=== PATIENT | female | born 1995 | race Caucasian/White ===

== ENCOUNTER 2019-06-07 11:15 | Day surgery (SDC) | payer OTHER ==
[~2019-06-07] VITALS: Ht 177.8 cm; Wt 78.7 kg
[~2019-06-07 11:15] MED LIST: BENTYL 20MG20 MG/TAB PO; CIPRO 500MG TA500 MG PO; FLAGYL500 MG PO; ILOTYCIN5 MG/GM OP; PERCOCET 325 MG1 TA2 PO; ZOFRAN ODT8 MG PO
[2019-06-07 12:04] VITALS: BP 93/60; PULSE 74; TEMP 97.6
[2019-06-07] MEDS ORDERED: WELLBUTRIN XL300 M1 PO (12:34)
[2019-06-07] MEDS ORDERED: LEXAPRO20 MG PO (12:35)
[2019-06-07] MEDS ORDERED: INDERAL 20MG20 MG PO (12:36)
[2019-06-07] MEDS ORDERED: ESKALITH C450 MG/TAB PO (12:36)
--- NOTE | 2019-06-07 13:26 | NUR ---
Patient taken to the PACU per cart to have block placed.
--- NOTE | 2019-06-07 13:42 | NUR ---
Patient returns to room 1 per cart after having block placed. Call light in reach.
[2019-06-07 16:50] VITALS: BP 107/67; PULSE 67; TEMP 97.3
--- NOTE | 2019-06-07 16:50 | NUR ---
TO RM 1 PER CART FROM PACU. ALERT ORIENTED X3, TALKING TO STAFF AND FAMILY. RIGHT ANKLE ELEVATED AND ICED. DRESSINGS CLEAN DRY INTACT. ABLE TO WIGGLE TOES, DENIES ANY FEELING. DENIES PAIN OR DISCOMFORT. DENIES NAUSEA OR VOMITING.
[2019-06-07 17:05] VITALS: BP 102/58; PULSE 72
[2019-06-07] MEDS ORDERED: NORCO 325 MG-7.1 TAB PO (17:05)
--- NOTE | 2019-06-07 17:05 | NUR ---
RECEIVED APPLE JUICE AND MUFFIN.
[2019-06-07 17:09] VITALS: TEMP 97.3
[2019-06-07 17:20] VITALS: BP 103/58; PULSE 72
--- NOTE | 2019-06-07 17:20 | NUR ---
ATE A FEW BITES OF MUFFIN AND FEW SIPS OF JUICE.
[2019-06-07 17:30] VITALS: BP 99/56; PULSE 82
--- NOTE | 2019-06-07 17:30 | NUR ---
AMBULTED TO BATHROOM USING CRUTCHES. VOIDED AND TOLERATED WELL.
--- NOTE | 2019-06-07 17:45 | NUR ---
PATIENT RECEIVED DISCHARGE INSTRUCTIONS AND VERBALIZED UNDERSTANDING. DISCONTINUED IV AND INT. PATIENT GETTING DRESSED AND DENIES NEEDING HELP.
--- NOTE | 2019-06-07 18:02 | NUR ---
DISCHARGED PER WC BY NURSING STAFF WITH RIGHT LEG ELEVATED. ABLE TO TRANSFER TO CAR AND TOLERATED WELL. DISCHARGED IN CARE OF MOTHER AND GRANDPARENTS
== END 2019-06-07 18:04 | disposition home or self-care (01) ==
LOC: SDCO 11:15
DX: M76.71 Peroneal tendinitis, right leg (principal); M76.51 Patellar tendinitis, right knee; Z88.1 Allergy status to other antibiotic agents; F32.9 Major depressive disorder, single episode, unspecified
CPT/HCPCS: J0690; J1100; J1885; J2250; J2405; J2704; J2795; J3010; J7120

== ENCOUNTER 2019-07-09 10:25 | Emergency (ER) | payer OTHER ==
[~2019-07-09] VITALS: Ht 180.3 cm; Wt 77.3 kg
[~2019-07-09 10:25] MED LIST changes: +ESKALITH C450 MG/TAB PO; +INDERAL 20MG20 MG PO; +LEXAPRO20 MG PO; +NORCO 325 MG-7.1 TAB PO; +WELLBUTRIN XL300 M1 PO
[2019-07-09 10:42] VITALS: BP 95/52
[2019-07-09] MEDS ORDERED: TYLENOL 325MG325 MG (10:55)
[2019-07-09] MEDS ORDERED: TAMIFLU 75MG75 MG PO (11:40)
[2019-07-09 11:55] VITALS: PULSE 89; TEMP 100.5
== END 2019-07-09 12:00 | disposition home or self-care (01) ==
LOC: COL.ER 10:25
DX: J10.1 Influenza due to other identified influenza virus with other respiratory manifestations (principal); F32.9 Major depressive disorder, single episode, unspecified; F41.9 Anxiety disorder, unspecified; Z90.89 Acquired absence of other organs

== ENCOUNTER → 2019-09-20 | Outpatient (CLI) | payer OTHER ==
[~2019-09-20] MED LIST changes: +TAMIFLU 75MG75 MG PO; +TYLENOL 325MG325 MG
== END ==
LOC: COL.RAD 13:44
DX: M62.81 Muscle weakness (generalized) (principal); R51 Headache
CPT/HCPCS: A9585

== ENCOUNTER 2020-07-09 22:17 | Emergency (ER) | payer OTHER ==
[~2020-07-09] VITALS: Ht 177.8 cm; Wt 75.0 kg
[~2020-07-09 22:17] MED LIST changes: +WELLBUTRIN XL150 MG PO; -WELLBUTRIN XL300 M1 PO
[2020-07-09 23:00] VITALS: TEMP 98.3
[2020-07-09 23:39] LABS: BASO % 0.5 % (0.0-2.0); EOS # 0.1 (0.0-0.7); EOS % 1.7 % (0-4.0); GRAN # 4.7 (1.4-6.5); HEMOGLOBIN 12.2 g/dl (12.5-16.0); LYMPH # 1.9 (1.2-3.4); LYMPH % 25.1 % (20.0-51.0); MEAN CELL VOLUME 90 fl (80.0-100.0); MEAN CORPUSCULAR HEMOGLOBIN 31 pg (27.0-31.0); MEAN CORPUSCULAR HGB CONC 35 g/dl (33.0-37.0); MEAN PLATELET VOLUME 9.9 fl (7.4-10.4); MONO # 0.8 (0.1-0.6); MONO % 10.6 % (1.7-9.3); PLATELET COUNT 297 K/mm3 (130-400); RED BLOOD COUNT 3.95 M/mm3 (4.10-5.30); REDCELL DISTRIBUTION WIDTH-CV 11.7 % (11.5-14.5)
[2020-07-09 23:46] LABS: HEMATOCRIT 35.4 % (37.0-47.0)
[2020-07-09 23:48] LABS: ANION GAP 6 mmol/L (7-16); BLOOD UREA NITROGEN 13 mg/dL (7-17); CALCIUM 9.3 mg/dL (8.4-10.2); CARBON DIOXIDE 31 mmol/L (22-30); CHLORIDE 101 mmol/L (98-107); CREATININE, serum 0.86 (0.52-1.25); GLUCOSE 87 mg/dL (74-106); POTASSIUM 3.5 mmol/L (3.4-5.0); SODIUM 139 mmol/L (137-145)
[2020-07-10] LABS: TROPONIN-I < 0.012 ng/mL (0.000-0.035)
[2020-07-10 01:12] VITALS: BP 116/77; PULSE 72
[2020-07-10] MEDS ORDERED: ORTIKOS9 MG PO (02:49)
[2020-07-10] MEDS ORDERED: DESYREL 50MG50 MG PO (02:50)
[2020-07-10] MEDS ORDERED: ADDERALL20 MG PO (02:51)
[2020-07-10] MEDS ORDERED: MELATONIN5 M1 SL (02:52)
== END 2020-07-10 01:14 | disposition home or self-care (01) ==
LOC: COL.ER 22:17
PROVIDERS: Emergency Medicine
DX: R07.89 Other chest pain (principal); R06.02 Shortness of breath; F41.9 Anxiety disorder, unspecified; F32.9 Major depressive disorder, single episode, unspecified; Z88.2 Allergy status to sulfonamides
CPT/HCPCS: Q9967

== ENCOUNTER → 2020-10-31 | Outpatient (CLI) | payer OTHER ==
[~2020-10-31] MED LIST changes: +ADDERALL20 MG PO; +COLESTID 1GM1 G PO; +DESYREL 50MG50 MG PO; +HIZENTRA SQ; +LITHIUM CA150 MG/CAP PO; +MELATONIN5 M1 SL; +ORTIKOS9 MG PO; +PLAQUENIL 200M200 MG PO
== END ==
LOC: COL.RAD 09:43
DX: R59.0 Localized enlarged lymph nodes (principal)

== ENCOUNTER 2020-12-15 09:49 | Day surgery (SDC) | payer OTHER ==
[~2020-12-15] VITALS: Ht 177.8 cm; Wt 71.0 kg
[~2020-12-15 09:49] MED LIST changes: -COLESTID 1GM1 G PO; -HIZENTRA SQ; -LITHIUM CA150 MG/CAP PO; -PLAQUENIL 200M200 MG PO
[2020-12-15 11:07] VITALS: BP 98/65; PULSE 81; TEMP 97.3
[2020-12-15] MEDS ORDERED: LITHIUM CA150 MG/CAP PO (11:33)
[2020-12-15] MEDS ORDERED: PLAQUENIL 200M200 MG PO (11:43)
[2020-12-15] MEDS ORDERED: COLESTID 1GM1 G PO (11:47)
[2020-12-15] MEDS ORDERED: HIZENTRA SQ (11:54)
[2020-12-15 12:45] VITALS: BP 99/56; PULSE 63; TEMP 97.6
--- NOTE | 2020-12-15 12:45 | NUR ---
Pt to GI bay 8 via cart from ENDO. Pt awake and alert. Denies pain or nausea. Pt ambulates to recliner with stand by assistance. VSS. Muffin, juic and water given per pt request. No visitors here with pt at this time. Call light within reach.
[2020-12-15 13:00] VITALS: BP 100/67; PULSE 65
--- NOTE | 2020-12-15 13:00 | NUR ---
Pt tolerating PO food and fluids without difficulties. Will continue to monitor. Call light within reach.
[2020-12-15 13:15] VITALS: BP 100/60; PULSE 77
--- NOTE | 2020-12-15 13:15 | NUR ---
Pt continues to rest. Denies needs. Call light within reach.
[2020-12-15 13:30] VITALS: BP 97/55; PULSE 68
--- NOTE | 2020-12-15 13:30 | NUR ---
Pt denies needs. Awaiting postop consulation with . Call light within reach.
--- NOTE | 2020-12-15 13:40 | NUR ---
IV site discontinued with all parts intact by Lakshmi SCHUSTER. Pt up to dress. Call light within reach.
--- NOTE | 2020-12-15 13:45 | NUR ---
D/C IV WITH NO COMPLICATIONS
--- NOTE | 2020-12-15 13:58 | NUR ---
PHYSICIAN IN TO SEE PATIENT
--- NOTE | 2020-12-15 14:40 | NUR ---
Patient dressed, reviewed discharge instruction. Pt verablized understanding. Transfered via wheelchair to friends personal vehicle for ride home.
== END 2020-12-15 14:40 | disposition home or self-care (01) ==
LOC: SDCO 09:49
DX: K29.50 Unspecified chronic gastritis without bleeding (principal); K52.839 Microscopic colitis, unspecified; K64.0 First degree hemorrhoids; K64.4 Residual hemorrhoidal skin tags; F32.9 Major depressive disorder, single episode, unspecified; F41.9 Anxiety disorder, unspecified; D83.9 Common variable immunodeficiency, unspecified; F90.9 Attention-deficit hyperactivity disorder, unspecified type; Z79.899 Other long term (current) drug therapy
CPT/HCPCS: J7120

== ENCOUNTER → 2021-02-09 | Outpatient (CLI) | payer OTHER ==
[~2021-02-09] MED LIST changes: +COLESTID 1GM1 G PO; +HIZENTRA SQ; +LITHIUM CA150 MG/CAP PO; +PLAQUENIL 200M200 MG PO
== END ==
LOC: COL.RAD 11:45
DX: H53.131 Sudden visual loss, right eye (principal); R20.2 Paresthesia of skin
CPT/HCPCS: A9585

== ENCOUNTER 2021-02-13 22:09 | Emergency (ER) | payer OTHER ==
[~2021-02-13] VITALS: Ht 177.8 cm; Wt 72.7 kg
[2021-02-13 22:39] VITALS: TEMP 98.8
[2021-02-14 00:18] VITALS: BP 106/60; PULSE 82
== END 2021-02-14 00:30 | disposition home or self-care (01) ==
LOC: COL.ER 22:09
DX: S61.211A Laceration without foreign body of left index finger without damage to nail, initial encounter (principal); W26.0XXA Contact with knife, initial encounter

== ENCOUNTER → 2021-07-20 | Outpatient (CLI) | payer BC | LOC: COL.RAD 12:39 | DX: M16.11 Unilateral primary osteoarthritis, right hip (principal); M25.851 Other specified joint disorders, right hip; M24.251 Disorder of ligament, right hip | CPT/HCPCS: A9585; Q9967 ==

== ENCOUNTER → 2021-08-06 | Outpatient (CLI) | payer BC | LOC: COL.RAD 10:51 | DX: L94.9 Localized connective tissue disorder, unspecified (principal); R55 Syncope and collapse | CPT/HCPCS: Q9967 ==

== ENCOUNTER 2021-08-23 09:23 | Outpatient (CLI) | payer BC ==
[~2021-08-23] VITALS: Ht 177.8 cm; Wt 71.3 kg
[~2021-08-23 09:23] MED LIST changes: -WELLBUTRIN XL150 MG PO; +WELLBUTRIN XL300 M1 PO
[2021-08-23 10:01] VITALS: BP 114/70; PULSE 89; TEMP 98.7
[2021-08-23 12:00] VITALS: BP 100/72; PULSE 92; TEMP 98.4
[2021-08-23 12:37] VITALS: BP 113/66; PULSE 87
--- NOTE | 2021-08-23 12:37 | NUR ---
DC instructions reviewed with pt, she expresses understanding. INT DC'd with catheter intact. She is steady on feet. She is escorted out to elevator with friend.
== END 2021-08-23 12:40 | disposition home or self-care (01) ==
LOC: COL.CAR 09:23
DX: R42 Dizziness and giddiness (principal); R06.02 Shortness of breath; R00.2 Palpitations; R00.0 Tachycardia, unspecified; R19.5 Other fecal abnormalities; I95.1 Orthostatic hypotension; M35.9 Systemic involvement of connective tissue, unspecified; K52.832 Lymphocytic colitis; F90.9 Attention-deficit hyperactivity disorder, unspecified type; Z79.899 Other long term (current) drug therapy

== ENCOUNTER 2022-01-24 18:59 | Emergency (ER) | payer BC ==
[~2022-01-24] VITALS: Ht 177.8 cm; Wt 70.5 kg
[2022-01-24 19:06] VITALS: BP 119/77; TEMP 98.6
[2022-01-24] MEDS ORDERED: ZOFRAN ODT4 MG PO (19:43)
[2022-01-24 21:15] VITALS: PULSE 86
== END 2022-01-24 21:15 | disposition home or self-care (01) ==
LOC: COL.ER 18:59
DX: S06.0X0A Concussion without loss of consciousness, initial encounter (principal); W20.8XXA Other cause of strike by thrown, projected or falling object, initial encounter

== ENCOUNTER → 2023-08-13 | Outpatient (CLI) | payer OTHER ==
[~2023-08-13] MED LIST changes: +Iohexol 300 - 100 ML VIAL IV ONE; +NS 100 ML IV SCH; +ZOFRAN ODT4 MG PO
== END ==
LOC: COL.RAD 12:55
DX: R05.3 Chronic cough (principal)
CPT/HCPCS: Q9967

== ENCOUNTER 2023-11-30 02:12 | Emergency (ER) | payer SELFPAY ==
[~2023-11-30] VITALS: Ht 177.8 cm; Wt 77.3 kg
[~2023-11-30 02:12] MED LIST changes: -Iohexol 300 - 100 ML VIAL IV ONE; -NS 100 ML IV SCH
[2023-11-30 02:49] LABS: BASO # 0.1 K/mm3 (0.0-0.2); BASO % 0.6 % (0.0-2.0); EOS # 0.2 K/mm3 (0.0-0.7); EOS % 1.5 % (0.0-4.0); GRAN # 7.9 K/mm3 (1.4-6.5); GRAN % 68.2 % (42.2-75.2); HEMOGLOBIN 11.1 g/dl (12.5-16.0); LYMPH # 2.3 K/mm3 (1.2-3.4); LYMPH % 20.1 % (20.0-51.0); MEAN CELL VOLUME 88 fl (80.0-100.0); MEAN CORPUSCULAR HEMOGLOBIN 29 pg (27-31); MEAN CORPUSCULAR HGB CONC 32 g/dl (33.0-37.0); MEAN PLATELET VOLUME 10.2 fl (7.4-10.4); MONO # 1.1 K/mm3 (0.1-0.6); MONO % 9.3 % (1.7-9.3); PLATELET COUNT 298 K/mm3 (130-400); RED BLOOD COUNT 3.89 M/mm3 (4.10-5.30); REDCELL DISTRIBUTION WIDTH-CV 13.3 % (11.5-14.5)
[2023-11-30 02:53] LABS: HEMATOCRIT 34.3 % (37.0-47.0)
[2023-11-30 03:09] LABS: ALBUMIN 3.6 g/dL (3.5-5.0); BILIRUBIN,TOTAL 0.2 mg/dL (0.2-1.2); CALCIUM 9.3 mg/dL (8.4-10.2); CREATININE, serum 0.74 mg/dL (0.57-1.11); POTASSIUM 3.6 mEq/L (3.5-4.5); TOTAL PROTEIN 7.1 g/dl (6.2-8.1)
[2023-11-30] MEDS ORDERED: Ondansetron 4 MG/2 ML VIAL IV ONE (03:15)
[2023-11-30] MEDS ORDERED: Morphine 4 MG/ML VIAL IV ONE ×2 (03:15)
[2023-11-30] MEDS ORDERED: Ketorolac 15 MG/ML VIAL IV ONE (03:15)
[2023-11-30] MEDS ORDERED: LR 1,000 ML IV ONE (03:15)
[2023-11-30 03:16] LABS: PROTHROMBIN TIME 10.7 SECONDS (9.7-12.8)
[2023-11-30 03:19] LABS: PARTIAL THROMBOPLASTIN TIME 31.9 SECONDS (26.0-37.0)
[2023-11-30 05:09] VITALS: BP 101/55; PULSE 80; TEMP 98.1
[2023-11-30] MEDS ORDERED: Home HYDROcodone/Acetaminophen 5/325 MG #4 TABS/PACK PO ONE (05:15)
[2023-11-30] MEDS ORDERED: NORCO 325 MG-51 TAB PO (22:27)
== END 2023-11-30 05:24 | disposition home or self-care (01) ==
LOC: COL.ER 02:12
PROVIDERS: Emergency Medicine
DX: O03.9 Complete or unspecified spontaneous abortion without complication (principal)
CPT/HCPCS: J1885; J2270; J2405; J7120